=== PATIENT | female | born 1950 | race Caucasian/White ===

== ENCOUNTER 2024-05-17 16:00 | Inpatient (IN) | payer MEDICAID, MEDICARE ==
[~2024-05-17] VITALS: Ht 162.6 cm; Wt 91.9 kg
[2024-05-17 16:39] LABS: BASOPHILS # (AUTO) 0.1 K/UL (0.0-0.2); DIFFERENTIAL COMMENT 0; EOSINOPHILS # (AUTO) 0.2 K/uL (0.0-0.7); EOSINOPHILS % (AUTO) 2.2 % (0.0-7.0); HEMATOCRIT 35.4 % (31.2-41.9); LYMPHOCYTES # (AUTO) 1.6 K/uL (0.8-4.8); LYMPHOCYTES % (AUTO) 21.1 % (20.5-51.5); MEAN CORPUSCULAR HEMOGLOBIN 30.7 uug (24.7-32.8); MEAN CORPUSCULAR HGB CONC 34 g/dL (32.3-35.6); MEAN CORPUSCULAR VOLUME 90.4 fL (75.5-95.3); MONOCYTES # (AUTO) 0.7 K/uL (0.1-1.30); MONOCYTES % (AUTO) 8.9 % (0.0-11.0); NEUTROPHILS # (AUTO) 5.2 K/uL (1.8-8.9); NEUTROPHILS % (AUTO) 66.8 % (38.5-71.5); PLATELET COUNT (AUTO) 210 K/uL (179-408); RED BLOOD CELL COUNT(AUTO) 3.92 MIL/uL (3.63-4.92); RED CELL DISTRIBUTION WIDTH 15.7 % (12.3-17.7); WHITE BLOOD COUNT (AUTO) 7.7 K/uL (3.8-11.8)
[2024-05-17 16:47] LABS: CALCIUM 8.6 mg/dL (8.5-10.1); CARBON DIOXIDE 22 mmol/L (21-32); CHLORIDE 106 mmol/L (98-107); CREATININE 1.1 mg/dL (0.6-1.3); GLUCOSE 90 mg/dL (74-106); POTASSIUM 4.1 mmol/L (3.5-5.1); SODIUM SERUM 141 mmol/L (136-145); UREA NITROGEN, BLOOD 16 mg/dL (7-18)
[2024-05-17 16:59] LABS: ALANINE AMINOTRANSFERASE 26 U/L (14-59); ALBUMIN 2.8 g/dL (3.4-5.0); ALKALINE PHOSPHATASE 119 U/L (50-136); ASPARTATE AMINOTRANSFERASE 11 U/L (15-37); BILIRUBIN,DIRECT 0.1 mg/dL (0.0-0.2); BILIRUBIN,TOTAL 0.4 mg/dL (0.2-1.0); NT-PRO BNP 261 pg/mL (0-125); TOTAL PROTEIN, SERUM 6.6 g/dL (6.4-8.2)
[2024-05-17] MEDS ORDERED: OMEP20TA5 PO (17:05)
[2024-05-17] MEDS ORDERED: BUSP5TAB3 PO (17:05)
[2024-05-17] MEDS ORDERED: ASPI-1420 PO (17:05)
[2024-05-17] MEDS ORDERED: AMLO-212 PO (17:05)
[2024-05-17] MEDS ORDERED: ASCO500T20 PO (17:05)
[2024-05-17] MEDS ORDERED: LEVO50TA8 PO (17:05)
[2024-05-17] MEDS ORDERED: PARO40TA4 PO (17:05)
[2024-05-17] MEDS ORDERED: ACET-73 PO (17:05)
[2024-05-17] MEDS ORDERED: CARV3.122 PO (17:05)
[2024-05-17] MEDS ORDERED: METO50TA16 PO (17:05)
[2024-05-17] MEDS ORDERED: LORA0.5T48 PO (17:05)
[2024-05-17] MEDS ORDERED: METF-867 PO (17:05)
[2024-05-17] MEDS ORDERED: MAGN400T26 PO (17:05)
[2024-05-17] MEDS ORDERED: ROSU40TA23 PO (17:05)
[2024-05-17] MEDS ORDERED: GABA300T25 (17:05)
[2024-05-17] MEDS ORDERED: GLIM1TAB18 PO (17:05)
[2024-05-17] MEDS ORDERED: ONDANSETRON 4 MG/2 ML VIAL ONE (18:13)
[2024-05-17] MEDS ORDERED: HYDROMORPHONE 1 MG/1 ML DISP.SYRIN ONE (18:13)
[2024-05-17] MEDS: HYDROMORPHONE 1 MG/1 ML DISP.SYRIN IV ONE (18:23)
[2024-05-17] MEDS: ONDANSETRON 4 MG/2 ML VIAL IV ONE (18:23)
[2024-05-17] MEDS ORDERED: IOHEXOL 350 100 ML INFUS..BTL ONE (19:14)
[2024-05-17] MEDS ORDERED: SWABABLE VALVE TRANSFER SET EA MC ONE (19:14)
[2024-05-17] MEDS ORDERED: IV NORMAL SALINE 250 ML IV ONE (19:14)
[2024-05-17] MEDS ORDERED: ALBUTEROL SULFATE 2.5 MG/3 ML NEBU NEB PRN (20:30)
[2024-05-17] MEDS ORDERED: ONDANSETRON 4 MG/2 ML VIAL IV PRN (20:30)
[2024-05-17] MEDS ORDERED: DEXTROSE 50% 50 ML DISP.SYRIN IV PRN (20:45)
[2024-05-17 23:00] VITALS: BP 144/68; TEMP 98.7; O2SAT 97
[2024-05-17] MEDS: DOCUSATE SODIUM 250 MG CAPSULE PO SCH (23:30)
[2024-05-17] MEDS: MAGNESIUM OXIDE 400 MG TABLET PO SCH (23:36)
[2024-05-17] MEDS: CARVEDILOL 3.125 MG TABLET PO SCH (23:43)
[2024-05-17] MEDS: ACETAMINOPHEN 325 MG TABLET PO PRN (23:53)
[2024-05-17] MEDS: busPIRone 5 MG TABLET PO SCH (23:53)
[2024-05-17] MEDS: BLOOD SUGAR DIAGNOSTIC 1 EACH STRIP VI SCH (23:58)
[2024-05-18] VITALS: BP 112/60; TEMP 97.6; O2SAT 98
[2024-05-18] MEDS: LORAZEPAM 0.5 MG TABLET PO PRN (00:35)
[2024-05-18] MEDS: KETOROLAC TROMETHAMINE 30 MG INJ IVP ONE (02:07)
[2024-05-18 04:00] VITALS: BP 122/60; TEMP 97.7; O2SAT 100
[2024-05-18] MEDS: PANTOPRAZOLE SODIUM 40 MG TABLET.DR PO SCH (07:04)
[2024-05-18 07:19] VITALS: BP 129/66; TEMP 97.8; O2SAT 96
[2024-05-18 07:36] LABS: BASOPHILS % (AUTO) 0.5 % (0.0-2.0); EOSINOPHILS # (AUTO) 0.1 K/uL (0.0-0.7); EOSINOPHILS % (AUTO) 1.9 % (0.0-7.0); HEMATOCRIT 37.2 % (31.2-41.9); HEMOGLOBIN 12.6 g/dL (10.9-14.3); LYMPHOCYTES # (AUTO) 1.4 K/uL (0.8-4.8); LYMPHOCYTES % (AUTO) 18.3 % (20.5-51.5); MEAN CORPUSCULAR HEMOGLOBIN 31.1 uug (24.7-32.8); MEAN CORPUSCULAR HGB CONC 34 g/dL (32.3-35.6); MEAN CORPUSCULAR VOLUME 91.7 fL (75.5-95.3); MONOCYTES # (AUTO) 0.6 K/uL (0.1-1.30); MONOCYTES % (AUTO) 7.6 % (0.0-11.0); NEUTROPHILS # (AUTO) 5.6 K/uL (1.8-8.9); NEUTROPHILS % (AUTO) 71.7 % (38.5-71.5); PLATELET COUNT (AUTO) 202 K/uL (179-408); RED BLOOD CELL COUNT(AUTO) 4.06 MIL/uL (3.63-4.92); RED CELL DISTRIBUTION WIDTH 15.9 % (12.3-17.7); WHITE BLOOD COUNT (AUTO) 7.8 K/uL (3.8-11.8)
[2024-05-18 07:55] LABS: ALANINE AMINOTRANSFERASE 25 U/L (14-59); ALKALINE PHOSPHATASE 122 U/L (50-136); ASPARTATE AMINOTRANSFERASE 11 U/L (15-37); BILIRUBIN,TOTAL 0.5 mg/dL (0.2-1.0); CALCIUM 8.8 mg/dL (8.5-10.1); CARBON DIOXIDE 27 mmol/L (21-32); CHLORIDE 105 mmol/L (98-107); CHOLESTEROL 149 mg/dL (<200); CREATININE 1.5 mg/dL (0.6-1.3); GLUCOSE 121 mg/dL (74-106); HDL CHOLESTEROL 44 mg/dL (40-60); MAGNESIUM 2.3 mg/dL (1.8-2.4); PHOSPHOROUS 5.6 mg/dL (2.5-4.9); POTASSIUM 4.4 mmol/L (3.5-5.1); SODIUM SERUM 140 mmol/L (136-145); TOTAL PROTEIN, SERUM 6.9 g/dL (6.4-8.2); TRIGLYCERIDES 183 MG/DL (30-150); UREA NITROGEN, BLOOD 19 mg/dL (7-18)
[2024-05-18 07:56] LABS: DIFFERENTIAL COMMENT 1
[2024-05-18] MEDS: PAROXETINE HCL 20 MG TABLET PO SCH (09:18)
[2024-05-18] MEDS: METFORMIN XR 500 MG TAB.SR.24H PO SCH (09:18)
[2024-05-18] MEDS: GLIMEPIRIDE 2 MG TABLET PO SCH (09:19)
[2024-05-18] MEDS: ASCORBIC ACID 500 MG TABLET PO SCH (09:19)
[2024-05-18] MEDS: ASPIRIN EC 81 MG TABLET.DR PO SCH (09:20)
[2024-05-18] MEDS: LEVOTHYROXINE SODIUM 50 MCG TABLET PO SCH (09:20)
[2024-05-18 11:30] VITALS: BP 103/50; TEMP 98.2; O2SAT 96
[2024-05-18] MEDS: NITROGLYCERIN 0.4 MG/TAB BOTTLE SL PRN (12:12)
[2024-05-18] MEDS: INSULIN REGULAR, HUMAN 1000 UNIT/10 ML VIAL SQ PRN (12:22)
[2024-05-18] MEDS ORDERED: INSULIN REGULAR, HUMAN 1000 UNIT/10 ML VIAL SQ PRN (12:45)
[2024-05-18] MEDS ORDERED: DEXTROSE 50% 50 ML DISP.SYRIN IV PRN (12:45)
[2024-05-18] MEDS: QUETIAPINE FUMARATE 25 MG TABLET PO SCH (13:28)
[2024-05-18] MEDS ORDERED: LORAZEPAM 0.5 MG TABLET PO PRN (13:45)
[2024-05-18] MEDS ORDERED: GLYCERIN ADULT RECTAL SUPP EACH RC PRN (15:15)
[2024-05-18] MEDS ORDERED: BISACODYL 10 MG SUPP.RECT RC PRN (15:15)
[2024-05-18 15:32] VITALS: BP 111/52; TEMP 98.4; O2SAT 97
[2024-05-18] MEDS ORDERED: BLOOD SUGAR DIAGNOSTIC 1 EACH STRIP VI SCH (16:30)
[2024-05-18] MEDS ORDERED: GABA300C PO (17:26)
[2024-05-18] MEDS ORDERED: MIRT-94 PO (17:33)
[2024-05-18] MEDS ORDERED: ICOS1CAP PO (17:33)
[2024-05-18] MEDS ORDERED: RANO10003 PO (17:33)
[2024-05-18 19:00] VITALS: BP 99/56; TEMP 97.6; O2SAT 97
[2024-05-18] MEDS: RANOLAZINE 500 MG TAB.ER.12H PO SCH (20:31)
[2024-05-18] MEDS: ATORVASTATIN 40 MG TABLET PO SCH (20:32)
[2024-05-18] MEDS: MIRTAZAPINE 15 MG TABLET PO SCH (20:32)
[2024-05-18] MEDS: DOCUSATE SODIUM 100 MG CAPSULE PO SCH (20:32)
[2024-05-19 06:52] LABS: BASOPHILS % (AUTO) 0.4 % (0.0-2.0); EOSINOPHILS # (AUTO) 0.2 K/uL (0.0-0.7); EOSINOPHILS % (AUTO) 2.5 % (0.0-7.0); HEMATOCRIT 35.6 % (31.2-41.9); HEMOGLOBIN 12.4 g/dL (10.9-14.3); LYMPHOCYTES # (AUTO) 1.3 K/uL (0.8-4.8); LYMPHOCYTES % (AUTO) 17.7 % (20.5-51.5); MEAN CORPUSCULAR HEMOGLOBIN 31.6 uug (24.7-32.8); MEAN CORPUSCULAR HGB CONC 35 g/dL (32.3-35.6); MEAN CORPUSCULAR VOLUME 90.8 fL (75.5-95.3); MONOCYTES # (AUTO) 0.5 K/uL (0.1-1.30); MONOCYTES % (AUTO) 7.1 % (0.0-11.0); NEUTROPHILS # (AUTO) 5.5 K/uL (1.8-8.9); NEUTROPHILS % (AUTO) 72.3 % (38.5-71.5); PLATELET COUNT (AUTO) 190 K/uL (179-408); RED BLOOD CELL COUNT(AUTO) 3.92 MIL/uL (3.63-4.92); WHITE BLOOD COUNT (AUTO) 7.6 K/uL (3.8-11.8)
[2024-05-19 07:25] LABS: ALANINE AMINOTRANSFERASE 21 U/L (14-59); ALBUMIN 2.9 g/dL (3.4-5.0); ALKALINE PHOSPHATASE 113 U/L (50-136); ASPARTATE AMINOTRANSFERASE 5 U/L (15-37); BILIRUBIN,TOTAL 0.4 mg/dL (0.2-1.0); CALCIUM 8.8 mg/dL (8.5-10.1); CARBON DIOXIDE 26 mmol/L (21-32); CHLORIDE 106 mmol/L (98-107); CREATININE 1.4 mg/dL (0.6-1.3); GLUCOSE 110 mg/dL (74-106); MAGNESIUM 2.2 mg/dL (1.8-2.4); PHOSPHOROUS 5.6 mg/dL (2.5-4.9); SODIUM SERUM 142 mmol/L (136-145); TOTAL PROTEIN, SERUM 6.8 g/dL (6.4-8.2); UREA NITROGEN, BLOOD 20 mg/dL (7-18)
[2024-05-19 07:49] LABS: DIFFERENTIAL COMMENT 1
[2024-05-19] MEDS: GABAPENTIN 300 MG CAPSULE PO SCH (08:41)
[2024-05-19] MEDS: METOPROLOL TARTRATE 50 MG TABLET PO SCH (08:42)
[2024-05-19 08:51] VITALS: BP 134/67; TEMP 97.6; O2SAT 94
[2024-05-19] MEDS ORDERED: Medication Not On Formulary EA (Rosuvastatin Calcium 1 TAB) PO SCH (09:00)
[2024-05-19] MEDS ORDERED: Icosapent Ethyl (Vascepa) 1 GM) PO SCH (09:00)
[2024-05-19] MEDS ORDERED: NITROGLYCERIN 0.4 MG/TAB BOTTLE SL PRN (09:49)
[2024-05-19 11:22] LABS: CREATINE KINASE, TOTAL 97 U/L (26-192)
[2024-05-19 11:45] VITALS: BP 133/64; TEMP 97.6; O2SAT 91
[2024-05-19 11:49] VITALS: BP 133/64; TEMP 97.6; O2SAT 97
[2024-05-19] MEDS: MAGNESIUM HYDROXIDE 30 ML LIQUID UDC PO PRN (12:08)
[2024-05-19 16:50] VITALS: BP 94/46; TEMP 97.5; O2SAT 93
[2024-05-19 19:00] VITALS: BP 118/54; TEMP 97.9; O2SAT 95
[2024-05-20] VITALS: BP 106/66; TEMP 98.5; O2SAT 94
[2024-05-20 04:00] VITALS: BP 100/64; TEMP 98.3; O2SAT 94
[2024-05-20 06:59] LABS: BASOPHILS % (AUTO) 0.3 % (0.0-2.0); EOSINOPHILS # (AUTO) 0.1 K/uL (0.0-0.7); EOSINOPHILS % (AUTO) 1.6 % (0.0-7.0); HEMATOCRIT 36.7 % (31.2-41.9); HEMOGLOBIN 12.3 g/dL (10.9-14.3); LYMPHOCYTES # (AUTO) 1.6 K/uL (0.8-4.8); LYMPHOCYTES % (AUTO) 17.3 % (20.5-51.5); MEAN CORPUSCULAR HGB CONC 34 g/dL (32.3-35.6); MEAN CORPUSCULAR VOLUME 92.6 fL (75.5-95.3); MONOCYTES # (AUTO) 0.7 K/uL (0.1-1.30); MONOCYTES % (AUTO) 7.6 % (0.0-11.0); NEUTROPHILS # (AUTO) 6.6 K/uL (1.8-8.9); NEUTROPHILS % (AUTO) 73.2 % (38.5-71.5); PLATELET COUNT (AUTO) 210 K/uL (179-408); RED BLOOD CELL COUNT(AUTO) 3.97 MIL/uL (3.63-4.92); RED CELL DISTRIBUTION WIDTH 15.6 % (12.3-17.7)
[2024-05-20 07:37] VITALS: BP 137/80; TEMP 98.4; O2SAT 94
[2024-05-20 07:38] LABS: DIFFERENTIAL COMMENT 1
[2024-05-20 07:39] LABS: CALCIUM 9.2 mg/dL (8.5-10.1); CARBON DIOXIDE 24 mmol/L (21-32); CHLORIDE 105 mmol/L (98-107); CREATININE 1.5 mg/dL (0.6-1.3); GLUCOSE 142 mg/dL (74-106); MAGNESIUM 2.7 mg/dL (1.8-2.4); PHOSPHOROUS 4.5 mg/dL (2.5-4.9); POTASSIUM 4.5 mmol/L (3.5-5.1); SODIUM SERUM 140 mmol/L (136-145); UREA NITROGEN, BLOOD 21 mg/dL (7-18)
[2024-05-20 09:12] VITALS: O2SAT 95
[2024-05-20 11:08] VITALS: BP 113/62; TEMP 97.6; O2SAT 95
[2024-05-20 15:54] VITALS: BP 107/49; TEMP 98.5; O2SAT 93
[2024-05-20] MEDS ORDERED: OMEGA-3 FATTY ACIDS/FISH OIL CAPSULE PO SCH (17:00)
[2024-05-20] MEDS ORDERED: METFORMIN XR 500 MG TAB.SR.24H PO SCH (17:00)
[2024-05-21 04:07] LABS: PTH, INTACT 19 pg/mL (15-65)
[2024-05-21 09:06] LABS: A/G RATIO 1.1 (0.7-1.7); ALBUMIN 3.2 g/dL (2.9-4.4); ALPHA-1-GLOBULIN 0.3 g/dL (0.0-0.4); ALPHA-2-GLOBULIN 1.1 g/dL (0.4-1.0); BETA GLOBULIN 1.1 g/dL (0.7-1.3); GAMMA GLOBULIN 0.5 g/dL (0.4-1.8); M-SPIKE Not Observed g/dL (Not Observed); PROTEIN, TOTAL 6.2 g/dL (6.0-8.5)
== END 2024-05-20 16:35 | DRG 194 ==
LOC: ER 16:01 → TELE3 22:01 → MEDSURG3 05-20 08:30
PROVIDERS: ADMIT Internal Medicine
DX: I11.0 Hypertensive heart disease with heart failure (principal); J96.01 Acute respiratory failure with hypoxia; N17.9 Acute kidney failure, unspecified; R07.89 Other chest pain; N20.0 Calculus of kidney; I50.33 Acute on chronic diastolic (congestive) heart failure; T50.8X5A Adverse effect of diagnostic agents, initial encounter; E44.0 Moderate protein-calorie malnutrition; N14.11 Contrast-induced nephropathy; E66.01 Morbid (severe) obesity due to excess calories; Y92.238 Other place in hospital as the place of occurrence of the external cause; R10.12 Left upper quadrant pain; F41.9 Anxiety disorder, unspecified; E88.09 Other disorders of plasma-protein metabolism, not elsewhere classified; Z68.34 Body mass index [BMI] 34.0-34.9, adult; E78.5 Hyperlipidemia, unspecified; R79.1 Abnormal coagulation profile; E11.9 Type 2 diabetes mellitus without complications; M89.8X9 Other specified disorders of bone, unspecified site; Z79.84 Long term (current) use of oral hypoglycemic drugs; Z79.899 Other long term (current) drug therapy; Z79.82 Long term (current) use of aspirin; Z87.01 Personal history of pneumonia (recurrent)
CPT/HCPCS: 36415; 71045; 83735; 83970; 84100; 84155; 84165; 84443; 84484; 85025; 85730; 93005; 93307; A4606; A4663; G0378; J1171; J1815; J1885; J2405; Q9967